=== PATIENT | female | born 1975 | race Caucasian/White ===

== ENCOUNTER 2022-08-04 23:59 | Emergency (ER) | payer MEDICAID ==
[~2022-08-04] VITALS: Ht 152.4 cm; Wt 55.0 kg
[2022-08-05 00:02] VITALS: BP 139/87
== END 2022-08-05 04:00 | disposition left against medical advice (07) ==
LOC: ER 23:59
DX: Z53.21 Procedure and treatment not carried out due to patient leaving prior to being seen by health care provider (principal)

== ENCOUNTER 2022-08-12 01:33 | Emergency (ER) | payer MEDICAID ==
[~2022-08-12] VITALS: Ht 157.5 cm; Wt 51.0 kg
[~2022-08-12 01:33] MED LIST: AMOX1TAB16 MT; ASCO-339 MT; ZINC100T8 MT
[2022-08-12] MEDS ORDERED: IBUPROFEN 600MG TABLET PO ONE (04:30)
[2022-08-12 05:50] VITALS: BP 124/78
== END 2022-08-12 05:53 | disposition home or self-care (01) ==
LOC: ER 01:33
DX: Z48.00 Encounter for change or removal of nonsurgical wound dressing (principal); I10 Essential (primary) hypertension; Z86.19 Personal history of other infectious and parasitic diseases; Z59.00 Homelessness unspecified
CPT/HCPCS: 99283